=== PATIENT | male | born 1995 | race Caucasian/White ===

== ENCOUNTER 2019-11-14 14:03 | Emergency (ER) | payer OTHER, SELFPAY ==
--- NOTE | ~2019-11-14 | XR_ITS ---
XR knee LT min 4V DATE: 11/14/2019 14:45 INDICATION: Left knee injury, pain TECHNIQUE: 4 views COMPARISON: None FINDINGS: No fracture or dislocation or joint effusion. No periosteal reaction or bone destruction. J oint spaces are well preserved. No radiopaque intra-articular loose body or chondrocalcinosis. IMPRESSION: Negative left knee Reviewed, dictated and finalized at location A. IMPRESSION: Negative left knee
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
[2019-11-14 14:11] VITALS: BP 148/88; PULSE 77; RESP 15; TEMP 36.8; O2SAT 100
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
== END 2019-11-14 15:22 | disposition home or self-care (01) ==
PROVIDERS: Emergency Provider Emergency Medicine
DX: M25.562 Pain in left knee (principal); M25.552 Pain in left hip; F17.290 Nicotine dependence, other tobacco product, uncomplicated; V86.55XA Driver of 3- or 4- wheeled all-terrain vehicle (ATV) injured in nontraffic accident, initial encounter
CPT/HCPCS: 73502; 73564; 99284; A9270

== ENCOUNTER 2019-11-22 16:09 | Outpatient (CLI) | payer OTHER, SELFPAY ==
--- NOTE | ~2019-11-22 | MR_ITS ---
EXAMINATION: MR knee LT wo con DATE: 11/22/2019 17:05 INDICATION: Left knee pain. TECHNIQUE: Magnetic resonance imaging (MRI) of the left knee was performed without intravenous contra st. Sequences included axial PD-weighted FS FSE, coronal PD-weighted FSE and PD-weighted FS FSE, sagi ttal PD-weighted FSE, and sagittal T2-weighted FS FSE. COMPARISON: Left knee radiographs 11/14/2019 FINDINGS: Medial compartment: Medial meniscus is normal. Medial compartment cartilage is normal. There is edema-like marrow signal intensity of medial tibial condyle anteriorly. Lateral compartment: Lateral meniscus is discoid. Lateral compartment cartilage is normal. There is edema-like marrow sign al intensity of lateral femoral condyle posterolaterally. Patellofemoral compartment: Patellar cartilage is normal. Trochlear cartilage is normal. Ligaments and tendons: The anterior and posterior cruciate ligaments are normal. There is edema around the medial collateral ligament, consistent with grade 1 sprain. Lateral collateral ligament complex is normal. The extenso r mechanism is normal. Fluid: There is a small knee joint effusion. There is mild superficial infrapatellar bursitis. There is subc utaneous edema of the anteromedial aspect of the knee. IMPRESSION: 1. Mild sprain of medial collateral ligament (grade 1). 2. Edema-like marrow signal intensity of medial tibial condyle and lateral femoral condyle, consisten t with contusions. 3. Small knee joint effusion. Reviewed, dictated and finalized at location E. IMPRESSION: 1. Mild sprain of medial collateral ligament (grade 1). 2. Edema-like marrow signal intensity of medial tibial condyle and lateral femo ral condyle, consistent with contusions. 3. Small knee joint effusion.
== END 2019-11-22 16:10 | disposition home or self-care (01) ==
PROVIDERS: Visit Provider Nurse Practitioner Family
DX: M25.462 Effusion, left knee (principal); S83.412A Sprain of medial collateral ligament of left knee, initial encounter; X58.XXXA Exposure to other specified factors, initial encounter
CPT/HCPCS: 73721